=== PATIENT | female | born 1950 | race Caucasian/White ===

== ENCOUNTER 2020-01-27 09:02 | Day surgery (SDC) | payer OTHER, MEDICARE | END 2020-01-27 23:00 | disposition home or self-care (01) | LOC: MOI MAM 09:02 | DX: N60.91 Unspecified benign mammary dysplasia of right breast (principal) | CPT/HCPCS: 19083; 77065; 88305; A4648 ==

== ENCOUNTER 2020-02-17 10:02 | Day surgery (SDC) | payer OTHER, MEDICARE ==
[~2020-02-17] VITALS: Ht 157.5 cm; Wt 48.0 kg
[~2020-02-17 10:02] MED LIST: AREDS 2 PO; ESTRADIOL0.5 MG VAG; FISH OIL PO
--- NOTE | 2020-02-17 12:17 | NUR ---
History, Chart, Medications and Allergies reviewed before start of procedure. Lungs clear T/O to Auscultation. Patient confirms NPO status and agrees with scheduled surgery. Pre-Op teaching done. Pt verbalizes understanding. Patient reports completing Chlorhexadine shower X2 prior to admission to hospital.
--- NOTE | 2020-02-17 15:16 | NUR ---
ASSUMED CARE FROM [facility] PT A/O DENIES PAIN OR NAUSEA DROWSY BUT WAKES EASILY TO VERBAL STIMULI DRSG CDI BINDER IN PLACE
--- NOTE | 2020-02-17 16:20 | NUR ---
Patient up to Ambulate independently. Gait steady. Discharge instructions reviewed with patient. Patient verbalizes understanding. Copy given to patient to take home. Patient States Post-Procedure ride home has been arranged. Discharged via wheelchair to private car for ride home. ALL BELONINGS RETURNED TO PATIENT. Dressing to procedure site clean, dry, intact with no visible drainage, swelling, erythema or bruising noted.
== END 2020-02-17 23:59 | disposition home or self-care (01) ==
LOC: ORD 10:02 → ORSCMMR 10:02 → ORD 11:30
PROVIDERS: Surgery
PROC: 0HBT0ZZ Excision of Right Breast, Open Approach (ICD-10-PCS; principal; 2020-02-17 13:30)
DX: D05.11 Intraductal carcinoma in situ of right breast (principal); Z80.3 Family history of malignant neoplasm of breast
CPT/HCPCS: 76098; 88307; A9270-GY; J0690; J1100; J1885; J2250; J2405; J2704; J3010; J7120

== ENCOUNTER 2020-02-28 11:02 | Day surgery (SDC) | payer OTHER, MEDICARE ==
[~2020-02-28] VITALS: Ht 157.5 cm; Wt 47.6 kg
== END 2020-02-28 13:55 | disposition home or self-care (01) ==
LOC: ORSCSDS 11:02
PROVIDERS: Surgery
PROC: 0HBT0ZZ Excision of Right Breast, Open Approach (ICD-10-PCS; principal; 2020-02-28 12:15)
DX: D05.11 Intraductal carcinoma in situ of right breast (principal)
CPT/HCPCS: 88305; J0690; J1100; J1885; J2250; J2405; J2704; J3010; J7120

== ENCOUNTER 2022-10-03 12:18 | Day surgery (SDC) | payer OTHER ==
[~2022-10-03] VITALS: Ht 157.5 cm; Wt 48.4 kg
[2022-10-03] MEDS ORDERED: ALEN10 (12:55)
[2022-10-03 14:26] VITALS: BP 101/67
== END 2022-10-03 14:25 | disposition home or self-care (01) ==
LOC: ORSCSDS 12:18
PROVIDERS: Internal Medicine Gastroenterology
PROC: 0DBM8ZX Excision of Descending Colon, Via Natural or Artificial Opening Endoscopic, Diagnostic (ICD-10-PCS; principal; 2022-10-03 14:15)
DX: Z12.11 Encounter for screening for malignant neoplasm of colon (principal); K63.5 Polyp of colon; K64.8 Other hemorrhoids; M81.0 Age-related osteoporosis without current pathological fracture; Z87.891 Personal history of nicotine dependence; Z79.899 Other long term (current) drug therapy
CPT/HCPCS: 88305; J2704; J7120

== ENCOUNTER → 2024-01-28 | Outpatient (CLI) | payer OTHER ==
[~2024-01-28] MED LIST changes: +ALEN10
[2024-01-28 13:20] LABS: BASOPHILS ABSOLUTE AUTO 0.04 K/mm3 (0.00-0.23); BASOPHILS PERCENT AUTO 1 % (0-2); EOSINOPHILS ABSOLUTE AUTO 0.13 K/mm3 (0.00-0.68); EOSINOPHILS PERCENT AUTO 2 % (0-6); Hematocrit 40.9 % (33.0-51.0); Hemoglobin 13.3 g/dL (11.5-16.0); IMMATURE GRAN ABSOLUTE AUTO 0.02 K/mm3 (0.00-0.10); IMMATURE GRAN PERCENT AUTO 0 % (0-1); LYMPHOCYTES ABSOLUTE AUTO 1.74 K/mm3 (0.84-5.20); LYMPHOCYTES PERCENT AUTO 27 % (21-46); MONOCYTES ABSOLUTE AUTO 0.61 K/mm3 (0.16-1.47); MONOCYTES PERCENT AUTO 10 % (4-13); Mean Corpuscular HGB 33.2 pg (26.0-34.0); Mean Corpuscular HGB Conc 32.5 g/dL (31.5-36.5); Mean Corpuscular Volume 102 fL (80-100); Mean Platelet Volume 11.8 fL (9.1-12.4); NEUTROPHILS ABSOLUTE AUTO 3.89 K/mm3 (1.96-9.15); NEUTROPHILS PERCENT AUTO 61 % (41-73); Platelet Count 263 K/mm3 (150-400); RDW Coefficient Variation 13.2 % (11.7-14.2); Red Blood Cell Count 4.01 M/mm3 (3.80-5.20); White Blood Cell Count 6.43 K/mm3 (4.00-11.30)
[2024-01-28 15:36] LABS: Alanine Aminotransfer (ALT/SGP 21 U/L (12-78); Albumin, Blood 4.2 g/dL (3.4-5.0); Albumin/Globulin Ratio 1.2 (0.8-1.8); Alk Phos 74 U/L (50-136); Anion Gap 10 mmol/L (3-11); Aspartate Aminotrans (AST/SGOT 23 U/L (12-37); Bilirubin, Total 0.6 mg/dL (0.1-1.0); Blood Urea Nitrogen 19 mg/dL (8-24); Bun/Creatinine Ratio 29.2 (12.0-20.0); CHOL/HDL RATIO 2.3; CO2, Blood 27 mmol/L (21-32); Calcium, Blood 9.2 mg/dL (8.5-10.1); Chloride, Blood 106 mmol/L (98-108); Cholesterol 246 mg/dL (50-200); Creatinine, Blood 0.65 mg/dL (0.40-1.00); Globulin, Blood 3.6 g/dL (2.2-4.0); Glomerular Filtration Rate 93 (60-); Glucose, Blood 88 mg/dL (70-99); HDL Cholesterol 108 mg/dL (>39); LDL/HDL RATIO 1.2; Low Density Lipoprotein Chol 125 mg/dL (0-110); Potassium, Blood 4.5 mmol/L (3.5-5.5); Sodium, Blood 138 mmol/L (136-145); Total Protein, Blood 7.8 g/dL (6.4-8.2); Triglycerides 63 mg/dL (30-160); Very Low Density Lipoprot Chol 12 mg/dL (6-32)
== END | disposition home or self-care (01) ==
LOC: LAB SHORT 12:00 → LAB 12:00
PROVIDERS: Family Medicine
DX: Z00.00 Encounter for general adult medical examination without abnormal findings (principal); R53.83 Other fatigue; E78.49 Other hyperlipidemia
CPT/HCPCS: 80053; 80061; 84443; 85025